=== PATIENT | male | born 1970 | race Caucasian/White ===

== ENCOUNTER 2019-12-05 08:46 | Emergency (ER) | payer MEDICAID ==
[~2019-12-05] VITALS: Ht 162.6 cm; Wt 69.9 kg
[2019-12-05 09:00] VITALS: Ht 162.6 cm; Wt 69.9 kg
[2019-12-05 10:56] LABS: microscopic required? YES; urine erythrocyte 1+ (NEGATIVE)
[2019-12-05 11:26] VITALS: BP 124/70
[2019-12-06 04:06] LABS: RAPID PLASMA REAGIN Non Reactive (Non Reactive)
== END 2019-12-05 11:26 | disposition home or self-care (01) ==
LOC: ED 08:46
PROVIDERS: Emergency Medicine
DX: N45.3 Epididymo-orchitis (principal); N43.3 Hydrocele, unspecified; F17.210 Nicotine dependence, cigarettes, uncomplicated
CPT/HCPCS: 87491; 87591; J0696; J1885; Q0092